=== PATIENT | female | born 1995 | race Caucasian/White ===

== ENCOUNTER 2020-04-16 15:36 | Emergency (ER) | payer MEDICAID ==
[~2020-04-16] VITALS: Ht 172.7 cm; Wt 90.2 kg
[2020-04-16 15:56] VITALS: BP 114/70
--- NOTE | 2020-04-16 16:23 | NUR ---
THIS IS A 24 YO F W/ C/O SUDDEN ONSET OF MENSTRUAL CRAMPS. PT STATES WHILE WAITING IN LOBBY MADE AN APT W/ OBGYN TO FOLLOW UP TOMORROW. NO OTHER COMPLAINTS AT THIS TIME. RESP EVEN AND UNLABORED, RADHA.
--- NOTE | 2020-04-16 16:29 | NUR ---
Patient given discharge instructions and they have confirmed that they understand the instructions. Patient ambulatory with steady gait.
== END 2020-04-16 16:31 ==
LOC: ED 16:25
DX: N93.8 Other specified abnormal uterine and vaginal bleeding (principal); R10.9 Unspecified abdominal pain
CPT/HCPCS: 99281